=== PATIENT | female | born 1965 | race Caucasian/White ===

== ENCOUNTER 2016-10-13 18:20 | Emergency (ER) | payer BC ==
[~2016-10-13] VITALS: Ht 165.1 cm; Wt 74.5 kg
[2016-10-13 18:23] VITALS: BP 166/95
[2016-10-13] MEDS ORDERED: CANA300T PO (18:26)
[2016-10-13] MEDS ORDERED: JANUVIA 100MG100 MG PO (18:26)
[2016-10-13 20:01] LABS: BASO % 0.4 % (0.0-2.0); EOS # 0.1 (0.0-0.7); EOS % 0.7 % (0-4.0); GRAN # 7.6 (1.4-6.5); GRAN % 70.5 % (42.2-75.2); HEMATOCRIT 40.6 % (37.0-47.0); HEMOGLOBIN 13.9 g/dl (12.5-16.0); LYMPH # 2.1 (1.2-3.4); LYMPH % 19.4 % (20.0-51.0); MEAN CELL VOLUME 89 fl (80.0-100.0); MEAN CORPUSCULAR HEMOGLOBIN 31 pg (27.0-31.0); MEAN CORPUSCULAR HGB CONC 34 g/dl (33.0-37.0); MEAN PLATELET VOLUME 10.9 fl (7.4-10.4); MONO # 0.9 (0.1-0.6); MONO % 8.6 % (1.7-9.3); PLATELET COUNT 154 K/mm3 (130-400); RED BLOOD COUNT 4.54 M/mm3 (4.10-5.30); REDCELL DISTRIBUTION WIDTH-CV 12.1 % (11.5-14.5); WHITE BLOOD COUNT 10.8 K/mm3 (4.8-10.8)
[2016-10-13 20:04] VITALS: TEMP 99
[2016-10-13 20:15] LABS: C-REACTIVE PROTEIN 4.6 mg/dL (0.0-0.9); CALCIUM 9.7 mg/dL (8.4-10.2); CREATININE, serum 0.63 mg/dL (0.52-1.25); POTASSIUM 4.2 mmol/L (3.4-5.0)
[2016-10-13 20:23] LABS: ERYTHROCYTE SEDIMENTATION RATE 15 mm/hr (0-30)
[2016-10-13] MEDS ORDERED: NAPROXEN 3375 MG/TAB PO (20:51)
[2016-10-13] MEDS ORDERED: NORCO 325 MG-51 TAB PO (20:51)
[2016-10-13 21:21] VITALS: PULSE 98
== END 2016-10-13 21:22 | disposition home or self-care (01) ==
LOC: COL.ER 18:20
PROVIDERS: Emergency Medicine
DX: M70.52 Other bursitis of knee, left knee (principal)
CPT/HCPCS: J1885

== ENCOUNTER → 2019-12-02 | Outpatient (CLI) | payer BC ==
[~2019-12-02] VITALS: Ht 165.1 cm; Wt 70.5 kg
[2019-12-02] VITALS (12 sets, daily range): BP systolic 119–156; BP diastolic 58–81; PULSE 76–101
[~2019-12-02] MED LIST: CANA300T PO; JANUVIA 100MG100 MG PO; JARDIANCE10 PO; NAPROXEN 3375 MG/TAB PO; NORCO 325 MG-51 TAB PO; TRESIBA FL100 UNIT/1 SQ
[2019-12-02 10:45] LABS: INR 1.1 (0.8-3.0); PROTHROMBIN TIME 12.3 SECONDS (9.7-12.8)
--- NOTE | 2019-12-02 11:15 | NUR ---
PT AMBULATES TO CT AND IS POSITIONED ON BED. MONITORING EQUIPMENT PLACED AND IMAGES TAKEN AND SENT
== END ==
LOC: COL.RAD 10:00
PROVIDERS: Internal Medicine
DX: C18.3 Malignant neoplasm of hepatic flexure (principal)

== ENCOUNTER 2020-05-07 10:37 | Inpatient (IN) | payer BC ==
[2020-05-07] VITALS (251 sets, daily range): BP systolic 60–105; BP diastolic 32–59; PULSE 84–115; TEMP 98.2–101.9; O2SAT 91–100
[~2020-05-07] VITALS: Ht 167.6 cm; Wt 75.2 kg
[2020-05-07 12:14] LABS: LACTIC ACID 3.2 mmol/L (0.4-2.0)
[2020-05-07 12:29] LABS: ALANINE AMINOTRANSFERASE 47 U/L (4-34); ALBUMIN 2.8 gm/dL (3.5-5.0); ALKALINE PHOSPHATASE 125 U/L (50-136); ANION GAP 10 mmol/L (7-16); AST,SGOT 59 U/L (15-37); BILIRUBIN,TOTAL 2.2 mg/dL (0.0-1.0); BLOOD UREA NITROGEN 41 mg/dL (7-17); CALCIUM 7.9 mg/dL (8.4-10.2); CARBON DIOXIDE 19 mmol/L (22-30); CREATININE, serum 1.64 (0.52-1.25); GLUCOSE 251 mg/dL (74-106); MAGNESIUM 1.7 mg/dL (1.6-2.3); POTASSIUM 3.8 mmol/L (3.4-5.0); TOTAL PROTEIN 5.6 gm/dL (6.4-8.2)
[2020-05-07 12:30] LABS: HEMOGLOBIN 10.8 g/dl (12.5-16.0); MEAN CELL VOLUME 93 fl (80.0-100.0); MEAN CORPUSCULAR HEMOGLOBIN 32 pg (27.0-31.0); MEAN CORPUSCULAR HGB CONC 35 g/dl (33.0-37.0); MEAN PLATELET VOLUME 12.8 fl (7.4-10.4); PLATELET COUNT 83 K/mm3 (130-400); RED BLOOD COUNT 3.37 M/mm3 (4.10-5.30); REDCELL DISTRIBUTION WIDTH-CV 13.4 % (11.5-14.5)
[2020-05-07 12:33] LABS: CHLORIDE 89 mmol/L (98-107); SODIUM 118 mmol/L (137-145)
[2020-05-07 12:40] LABS: HEMATOCRIT 31.3 % (37.0-47.0)
[2020-05-07 12:52] LABS: TROPONIN-I < 0.012 ng/mL (0.000-0.035)
[2020-05-07 13:33] LABS: BASOPHIL 2 % (0-2); EOSINOPHIL 1 % (0-4); LYMPHOCYTE 62 % (20.0-51.0)
[2020-05-07 13:34] LABS: PLATELET ESTIMATE DECREASED (NORMAL)
[2020-05-07 13:56] LABS: HYALINE CAST >12 /lpf; MUCOUS Present /lpf; PH 5 (5-8); SQUAMOUS EPITHELIAL 0-2 /hpf; URINE APPEARANCE Hazy; URINE BACTERIA Rare /hpf; URINE BILIRUBIN Negative (NEGATIVE); URINE BLOOD 1+ (NEGATIVE); URINE COLOR Amber; URINE GLUCOSE Negative (NEGATIVE); URINE KETONE Negative (NEGATIVE); URINE LEUKOCYTE ESTERASE Negative (NEGATIVE); URINE NITRATE Negative (NEGATIVE); URINE PROTEIN(semi-quant) 1+ (NEGATIVE); URINE RBC 0-2 /hpf; URINE WBC 0-2 /hpf
[2020-05-07 14:28] LABS: COLLECTION METHOD CATHETER
--- NOTE | 2020-05-07 15:37 | NUR ---
Vancomycin Initial Dosing Pharmacy Note Ordering provider: MITZI Indication/duration: FEBRILE NEUTROPENIA LABS: WBC 0.9, SCr 1.6, CrCl ~40 Recommendation: VANCOMYCIN 15 MG/KG Loading dose: 1.25 grams Maintenance dose: 1 gram every 24 hours Trough goal: 15-20 ug/mL. TROUGH 05/10 @ 1330
[2020-05-07] MEDS ORDERED: MAGIC MOUTHWASH1 M1 (15:39)
[2020-05-07] MEDS ORDERED: PRINIVIL10 MG PO (15:40)
--- NOTE | 2020-05-07 17:52 | NUR ---
Phone report received from Ivonne HWANG from ED.
--- NOTE | 2020-05-07 18:15 | NUR ---
Pt arrived via stretcher x1 staff assist. Neutropenic precautions in place. Pt reports preference for staff assist to transfer from stretcher to bed. Changed pt brief due to slight diarrhea noted. Pt A&O X4. Drowsy at this time. Assessments completed.
[2020-05-07 19:01] LABS: SODIUM,RANDOM URINE < 5 mmol/L
--- NOTE | 2020-05-07 19:15 | NUR ---
Bedside report provided to Mildred HWANG.
[2020-05-07 22:28] LABS: CLOSTRIDIUM DIFF A/B POS; CLOSTRIDIUM DIFF A/B INTERP Toxigenic C.diff POS
[2020-05-08] VITALS (710 sets, daily range): BP systolic 67–136; BP diastolic 38–89; PULSE 73–107; TEMP 97.7–99.8; O2SAT 72–100
--- NOTE | 2020-05-08 03:24 | NUR ---
SHADIA CALLED REGARDING PT NOT HAVING ANY OUTPUT SO FAR THIS SHIFT OTHER THAN DIARRHEA. PT BLADDER SCAN >520. PT DENIES THE SENSATION TO VOID OR PAIN DURING ASSESSMENT. AWAITING ORDERS.
--- NOTE | 2020-05-08 04:00 | NUR ---
14F ALEMAN CATH PLACED, 10ML BALLOON. 500ML MEÑO COLORED URINE OUT. PT TOLERATED WELL. SECURED TO LEFT LEG WITH STAT LOCK.
[2020-05-08 05:17] LABS: MEAN CELL VOLUME 93 fl (80.0-100.0); MEAN CORPUSCULAR HGB CONC 34 g/dl (33.0-37.0); MEAN PLATELET VOLUME 11.8 fl (7.4-10.4); PLATELET COUNT 160 K/mm3 (130-400); RED BLOOD COUNT 3.05 M/mm3 (4.10-5.30); REDCELL DISTRIBUTION WIDTH-CV 13.7 % (11.5-14.5)
[2020-05-08 05:30] LABS: HEMATOCRIT 28.5 % (37.0-47.0); HEMOGLOBIN 9.6 g/dl (12.5-16.0); MEAN CORPUSCULAR HEMOGLOBIN 31 pg (27.0-31.0)
[2020-05-08 05:34] LABS: ALBUMIN 2.3 gm/dL (3.5-5.0); BILIRUBIN,TOTAL 1.6 mg/dL (0.0-1.0); CALCIUM 7.2 mg/dL (8.4-10.2); POTASSIUM 3.3 mmol/L (3.4-5.0); TOTAL PROTEIN 4.7 gm/dL (6.4-8.2)
--- NOTE | 2020-05-08 05:46 | NUR ---
SHADIA PAGED REGARDING K OF 3.3. MESSAGE LEFT WITH PETTY THE NURSE.
[2020-05-08 06:34] LABS: BAND 5 % (0-10); EOSINOPHIL 3 % (0-4); LYMPHOCYTE 57 % (20.0-51.0); METAMYELOCYTE 13 % (0-0); MYELOCYTE 1 % (0-0); NEUTROPHILS 11 % (42.0-75.2); PLATELET ESTIMATE NORMAL (NORMAL)
--- NOTE | 2020-05-08 07:05 | NUR ---
RECEIVED REPORT FROM JAIDEN VERMA. PT RESTING EASILY IN BED. CALL LIGHT WITHIN REACH. PT ON RA. FC PATENT AND DRAINING TO GRAVITY. VSS.
--- NOTE | 2020-05-08 10:15 | NUR ---
DR DE LA ROSA AT BEDSIDE FOR ASSESSMENT. NEW ORDERS RECEIVED.
--- NOTE | 2020-05-08 11:14 | NUR ---
Jr. Java Developer was able to stand outside of door and pray for patient.
--- NOTE | 2020-05-08 11:15 | NUR ---
REPORT GIVEN TO JAIDEN PAIGE.
[2020-05-08 11:19] LABS: C-REACTIVE PROTEIN 35.3 mg/dL (0.0-0.9)
--- NOTE | 2020-05-08 18:42 | NUR ---
Report given to Ritika HWANG and care transfered.
--- NOTE | 2020-05-08 21:54 | NUR ---
HR noted to jaci down to the 30's and 40's on several occasions, and then return to 70's and 80's. BP within normal limits; currently on levophed drip. Patient alert and oriented and denies symptoms associated with bradycardia. [facility] physician notified and instructed to get EKG and Cardiology consult. EKG showed Sinus bradycardia with sinus arrhythmia and [facility] physician notified. Dr. Hope notified. Instructed to monitor at this time. If heart rate maintains in the 30's may need to start epinephrine drip, although this is not necessary at this time. Will continue to monitor.
--- NOTE | 2020-05-08 22:30 | NUR ---
This nurse at bedside when notified by telemetry that it appeared that pt had converted to A-fib with RVR. This was confirmed via EKG. Patient denies any syptoms at this time and BP still stable on low dose of levophed. Vice President Of Nursing notified and instructed to continue to monitor and call back if HR remains greater than 140. Patient only on SCD's this was discussed with cardiology and wishes to keep treatment the same at this time. Will continue to monitor.
[2020-05-09] VITALS (620 sets, daily range): BP systolic 84–129; BP diastolic 6–90; PULSE 107–134; TEMP 97.6–98.6; O2SAT 84–100
--- NOTE | 2020-05-09 04:30 | NUR ---
Resting in bed; denies any concerns at this time.
[2020-05-09 06:58] LABS: HEMOGLOBIN 11.3 g/dl (12.5-16.0); MEAN CELL VOLUME 95 fl (80.0-100.0); MEAN CORPUSCULAR HEMOGLOBIN 32 pg (27.0-31.0); MEAN CORPUSCULAR HGB CONC 33 g/dl (33.0-37.0); MEAN PLATELET VOLUME 11.8 fl (7.4-10.4); PLATELET COUNT 180 K/mm3 (130-400); RED BLOOD COUNT 3.56 M/mm3 (4.10-5.30); REDCELL DISTRIBUTION WIDTH-CV 13.9 % (11.5-14.5)
--- NOTE | 2020-05-09 07:00 | NUR ---
REPORT RECEIVED FROM WOLFGANG HWANG. PT HAS LEVO RUNNING AT 0.07MCG.
[2020-05-09 07:04] LABS: ALBUMIN 2.5 gm/dL (3.5-5.0); BILIRUBIN,TOTAL 1.3 mg/dL (0.0-1.0); CALCIUM 7.8 mg/dL (8.4-10.2); CREATININE, serum 0.66 (0.52-1.25); POTASSIUM 4.1 mmol/L (3.4-5.0); TOTAL PROTEIN 5.1 gm/dL (6.4-8.2)
[2020-05-09 07:05] LABS: HEMATOCRIT 33.8 % (37.0-47.0)
[2020-05-09 11:03] LABS: BAND 8 % (0-10); LYMPHOCYTE 16 % (20.0-51.0); NEUTROPHILS 64 % (42.0-75.2)
[2020-05-09 11:04] LABS: PLATELET ESTIMATE NORMAL (NORMAL)
--- NOTE | 2020-05-09 12:00 | NUR ---
SPOKE WITH REGARING PTS BP, HR, AND BG. CALL PLACED TO REGARDING HR. ORDER RECEIVED FOR IV AMIO. ORDERS RECEIVED FROM FOR IV INSULIN. ORDER ALSO RECEIVED TO CONSULT SURGERY FOR CENTRAL LINE PLACEMENT. CALLED FOR CONSULT.
[2020-05-09 12:33] LABS: MAGNESIUM 1.9 mg/dL (1.6-2.3)
--- NOTE | 2020-05-09 14:00 | NUR ---
DR MASCORRO AT BEDSIDE FOR ASSESSMENT. ASKS FOR ANOTHER AMIO BOLUS, EKG AND ASKS ABOUT VTE PROPHOLAXIS. NEW ORDERS RECEIVED. PHYSICIAN STATES LOVENOX IS OK FOR NOW.
--- NOTE | 2020-05-09 19:30 | NUR ---
Patient alert and oriented watching TV. Assessment completed. Denies any pain or shortness of air. Assisted with a bedbath and provided with toothbrush. Will continue to monitor.
[2020-05-10] VITALS (416 sets, daily range): BP systolic 87–128; BP diastolic 51–84; PULSE 98–110; TEMP 97.4–98.9; O2SAT 91–100
--- NOTE | 2020-05-10 01:44 | NUR ---
Patient's most recent glucose 100. Drip has been on hold for last hour due low glucose levels and following insulin drip protocol. Discussed with hospitalist. Ok to stop drip at this time. Will re-evaluate if sliding scale or re-initiate of drip is needed. Will continue to monitor glucose levels.
[2020-05-10 06:00] LABS: HEMOGLOBIN 10.3 g/dl (12.5-16.0); MEAN CELL VOLUME 94 fl (80.0-100.0); MEAN CORPUSCULAR HEMOGLOBIN 32 pg (27.0-31.0); MEAN CORPUSCULAR HGB CONC 34 g/dl (33.0-37.0); MEAN PLATELET VOLUME 12.1 fl (7.4-10.4); PLATELET COUNT 203 K/mm3 (130-400); RED BLOOD COUNT 3.22 M/mm3 (4.10-5.30); REDCELL DISTRIBUTION WIDTH-CV 14.1 % (11.5-14.5)
--- NOTE | 2020-05-10 06:02 | NUR ---
Blood glucose 126 this am with insulin drip off. Hospitalist notified and will initiate low sliding scale insulin q4hr.
[2020-05-10 06:04] LABS: HEMATOCRIT 30.2 % (37.0-47.0)
[2020-05-10 06:08] LABS: ALBUMIN 2.2 gm/dL (3.5-5.0); BILIRUBIN,TOTAL 1.2 mg/dL (0.0-1.0); CALCIUM 7.9 mg/dL (8.4-10.2); CREATININE, serum 0.69 (0.52-1.25); MAGNESIUM 1.8 mg/dL (1.6-2.3); POTASSIUM 3.6 mmol/L (3.4-5.0); TOTAL PROTEIN 4.6 gm/dL (6.4-8.2)
--- NOTE | 2020-05-10 06:35 | NUR ---
Notified Dr. Hopkins of critical WBC count. Will obtain blood cultures X2 and a UA.
[2020-05-10 07:05] LABS: BAND 35 % (0-10); LYMPHOCYTE 11 % (20.0-51.0); METAMYELOCYTE 3 % (0-0); MYELOCYTE 10 % (0-0); NEUTROPHILS 31 % (42.0-75.2); NUCLEATED RED BLOOD CELL 3 (0-6)
[2020-05-10 07:08] LABS: PLATELET ESTIMATE NORMAL (NORMAL)
[2020-05-10 07:09] LABS: SCHISTOCYTES 1+; SPHEROCYTE 1+; TEAR DROP CELLS 1+
[2020-05-10 07:10] LABS: OVALOCYTES 1+
--- NOTE | 2020-05-10 07:30 | NUR ---
REPORT RECEIVED FROM JAIDEN GOSS
[2020-05-10 08:09] LABS: OSMOLALITY-URINE random 162 Osm/kg (50-1200)
--- NOTE | 2020-05-10 13:00 | NUR ---
Patient arrived to floor from ICU via bed. Patient is sleepy but rouses with some effort. While awake patient responds to some questions and grimices, answers yes when asked if he is having pain, administered PRN pain medication per order. IVF and antibiotic running per order. Epidural in place. Midline incision has some bloody drainage that is dried, otherwise well approximated and no indications of infection. Tube feeding at 35 ml per hour. Galindo in place. Call light within reach, bed alarm on.
--- NOTE | 2020-05-10 17:00 | NUR ---
Patient taken up to room 325 after receiving transfer orders. Patient requests zarate to be discontinued. She is able to ambulate with no issue and has been hemodynamically stable. Zarate discontinued per her request.
--- NOTE | 2020-05-10 17:30 | NUR ---
Patient arrived to floor from ICU via wheelchair. Patient is alert and oriented, answers questions appropriately. Patient resting in bedside recliner at this time and denies pain or needs. Call light within reach.
--- NOTE | 2020-05-10 19:13 | NUR ---
Patient resting in bed at this time. Patient remains sleepy, rouses with some effort. Epidural continues per anesthesia recommendations. Tube feeding increased to 54 ml/hr per order.
[2020-05-10 22:27] LABS: COLLECTION METHOD CATHETER
[2020-05-10 22:35] LABS: PH 7 (5-8); SQUAMOUS EPITHELIAL None Seen /hpf; URINE APPEARANCE Clear; URINE BACTERIA None Seen /hpf; URINE BILIRUBIN Negative (NEGATIVE); URINE BLOOD Negative (NEGATIVE); URINE COLOR Yellow; URINE GLUCOSE Negative (NEGATIVE); URINE KETONE Negative (NEGATIVE); URINE LEUKOCYTE ESTERASE Negative (NEGATIVE); URINE NITRATE Negative (NEGATIVE); URINE PROTEIN(semi-quant) Negative (NEGATIVE); URINE RBC 0-2 /hpf; URINE UROBILINOGEN Negative (NEGATIVE)
[2020-05-11] VITALS: BP 116/62; PULSE 73; TEMP 97.5
--- NOTE | 2020-05-11 00:52 | NUR ---
Up to bathroom at this time-stand by assist. Large liquid brown BM. Assisted back to bed. Call light in reach. Will monitor.
[2020-05-11 05:04] VITALS: BP 117/80; PULSE 70; TEMP 97.7
[2020-05-11 07:37] VITALS: BP 119/65; PULSE 70; TEMP 97.6
--- NOTE | 2020-05-11 08:00 | NUR ---
Patient resting in bed at this time. Patient is alert and oriented, answers questions appropriately. Patient reports that she has had a loose formed stool this morning, denies pain or discomfort. Call light within reach.
[2020-05-11 09:56] LABS: MEAN CELL VOLUME 96 fl (80.0-100.0); MEAN CORPUSCULAR HGB CONC 34 g/dl (33.0-37.0); PLATELET COUNT 165 K/mm3 (130-400); RED BLOOD COUNT 2.95 M/mm3 (4.10-5.30); REDCELL DISTRIBUTION WIDTH-CV 14.7 % (11.5-14.5)
[2020-05-11 10:03] LABS: CALCIUM 7.7 mg/dL (8.4-10.2); CREATININE, serum 0.76 (0.52-1.25); MAGNESIUM 1.9 mg/dL (1.6-2.3)
[2020-05-11 10:09] LABS: HEMATOCRIT 28.4 % (37.0-47.0); HEMOGLOBIN 9.6 g/dl (12.5-16.0); MEAN CORPUSCULAR HEMOGLOBIN 33 pg (27.0-31.0)
[2020-05-11 11:06] LABS: BAND 16 % (0-10); LYMPHOCYTE 7 % (20.0-51.0); METAMYELOCYTE 4 % (0-0); MYELOCYTE 3 % (0-0); NEUTROPHILS 59 % (42.0-75.2); NUCLEATED RED BLOOD CELL 1 (0-6); PLATELET ESTIMATE NORMAL (NORMAL)
[2020-05-11 11:07] LABS: OVALOCYTES 1+; SPHEROCYTE 1+
[2020-05-11 11:38] VITALS: BP 124/72; PULSE 74; TEMP 97.2
--- NOTE | 2020-05-11 14:05 | NUR ---
ILIANA met with the patient to discuss discharge plan. The patient lives in [place] with her , Carlos (ph#[phone]). She reports independence with ADLs and does not have any DME. The patient's primary care provider is FRANCISCO Huggins and she receives her medications from [facility]. She reports no difficulties obtaining her meds. The patient does not have a DPOA-HC in EMR, but she states that she does have one completed and at home. She states that her is her DPOA-HC. The patient plans to return home with her upon discharge. ILIANA contacted and reviewed the above information with the patient's . He had no concerns for SW. No additional needs at this time.
[2020-05-11 16:00] VITALS: BP 124/83; PULSE 71; TEMP 97.5
--- NOTE | 2020-05-11 18:27 | NUR ---
Patient resting in bed eating dinner. Patient is alert and oriented, denies pain. Patient reports that she is feeling very well and is disappointed she didn't get to go home today. Patient denies further needs,call light within reach.
--- NOTE | 2020-05-11 20:00 | NUR ---
Report received, assumed care for night time babysitter. Assessment complete. A&Ox3. VS stable. Denies pain/nausea/shortness of breath/diarrhea. Central line to left IJ flushes without difficulty-good blood return. NS@63ml/hr. Plan of care discussed for this shift to include HS meds/calling for questions/concerns. Verbalizes understanding. Call light in reach. Will monitor.
[2020-05-11 20:30] VITALS: BP 110/76; PULSE 76; TEMP 97.5
--- NOTE | 2020-05-11 21:00 | NUR ---
HS bedside glucose 73-Levemir held. Provided a snack to eat. Will recheck glucose.
[2020-05-12 00:59] VITALS: BP 99/51; PULSE 85; TEMP 98.1
[2020-05-12 04:17] VITALS: BP 110/52; PULSE 82; TEMP 97.5
--- NOTE | 2020-05-12 05:43 | NUR ---
Rested well this shift. States she really wants to go home today. Had one episode of liquid stool this shift. VS remained stable. Blood sugars WNL-held levemir due to low HS reading. Denies questions/concerns. Call light in reach. Will monitor.
[2020-05-12 06:28] LABS: HEMOGLOBIN 10.8 g/dl (12.5-16.0); MEAN CELL VOLUME 99 fl (80.0-100.0); MEAN CORPUSCULAR HEMOGLOBIN 33 pg (27.0-31.0); MEAN CORPUSCULAR HGB CONC 33 g/dl (33.0-37.0); MEAN PLATELET VOLUME 11.9 fl (7.4-10.4); PLATELET COUNT 156 K/mm3 (130-400); RED BLOOD COUNT 3.32 M/mm3 (4.10-5.30); REDCELL DISTRIBUTION WIDTH-CV 14.8 % (11.5-14.5)
[2020-05-12 06:36] LABS: CREATININE, serum 0.74 (0.52-1.25); POTASSIUM 4.1 mmol/L (3.4-5.0)
[2020-05-12 06:43] LABS: HEMATOCRIT 32.7 % (37.0-47.0)
[2020-05-12 07:27] VITALS: BP 129/68; PULSE 80; TEMP 97.5
[2020-05-12 08:49] LABS: ANISOCYTOSIS 1+; BAND 9 % (0-10); LYMPHOCYTE 11 % (20.0-51.0); METAMYELOCYTE 7 % (0-0); MYELOCYTE 2 % (0-0); NEUTROPHILS 60 % (42.0-75.2); PLATELET ESTIMATE NORMAL (NORMAL)
[2020-05-12 08:51] LABS: HYPOCHROMIA 1+
--- NOTE | 2020-05-12 09:45 | NUR ---
Patient alert and oriented, answers questions appropriately. See assessment. No loose or frequent stools this shift. No c/o at this time.
[2020-05-12] MEDS ORDERED: ELIQUIS 5MG PO (11:25)
[2020-05-12] MEDS ORDERED: VANCOCIN H125 MG/CAP PO (11:26)
[2020-05-12 11:27] VITALS: BP 117/65; PULSE 81; TEMP 97.3
[2020-05-12] MEDS ORDERED: PACERONE400 MG PO (11:27)
--- NOTE | 2020-05-12 11:59 | NUR ---
Dr Syed here to see patient.
--- NOTE | 2020-05-12 12:46 | NUR ---
Right IJ removed per drs order with no complications. Pressure held for 5 minutes, pressure dressing applied.
--- NOTE | 2020-05-12 13:48 | NUR ---
Discharge instructions reviewed with patient, verbalized understanding. Discharged via wheelchair to auto/home with family at 1330.
== END 2020-05-12 13:30 | disposition home or self-care (01) | DRG 871 ==
LOC: COL.ER 10:37 → ICU 13:26 → SURG 05-10 17:30
PROVIDERS: Emergency Medicine; Internal Medicine; Internal Medicine Critical Care Medicine; Internal Medicine Pulmonary Disease; Student in an Organized Health Care Education/Training Program; ADMIT Hospitalist
PROC: 05HM33Z Insertion of Infusion Device into Right Internal Jugular Vein, Percutaneous Approach (ICD-10-PCS; principal; 2020-05-09)
DX: A41.51 Sepsis due to Escherichia coli [E. coli] (principal); R65.21 Severe sepsis with septic shock; A04.72 Enterocolitis due to Clostridium difficile, not specified as recurrent; E87.1 Hypo-osmolality and hyponatremia; N17.9 Acute kidney failure, unspecified; E87.2 Acidosis; N39.0 Urinary tract infection, site not specified; R50.81 Fever presenting with conditions classified elsewhere; T45.1X5A Adverse effect of antineoplastic and immunosuppressive drugs, initial encounter; D70.2 Other drug-induced agranulocytosis; Z20.828 Contact with and (suspected) exposure to other viral communicable diseases; I48.91 Unspecified atrial fibrillation; D69.6 Thrombocytopenia, unspecified; D64.9 Anemia, unspecified; E11.9 Type 2 diabetes mellitus without complications; I10 Essential (primary) hypertension; Z85.038 Personal history of other malignant neoplasm of large intestine; Z98.51 Tubal ligation status; Z87.891 Personal history of nicotine dependence
CPT/HCPCS: 99223-AI; 99232-AI; 99233-AI; 99239; C9113; J0282; J1447; J1650; J1720; J1815; J2543; J3370; J7030; J7050; J7060; J7120

== ENCOUNTER 2023-03-15 13:01 | Day surgery (SDC) | payer BC ==
[~2023-03-15] VITALS: Ht 165.1 cm; Wt 73.8 kg
[~2023-03-15 13:01] MED LIST changes: +ALDACTONE 25MG25 M1 PO; +CARAFATE 1GM1 G PO; +DAZIDOX10 MG PO; +ELIQUIS 5MG PO; +FARXIGA10 PO; +FLAGYL500 MG PO; +LASIX 20MG TABL20 MG PO; +LEVAQUIN 750MG750 M1 PO; +LOVENOX 4040 MG/0.4 SQ; +MAGIC MOUTHWASH1 M1; +MULTIVITAMIN FO1 CAP PO; +NATURAL IRON65 MG PO; +NEURONTIN300 MG/CAP PO; +PACERONE400 MG PO; +PRINIVIL10 MG PO; +PROTONIX 40MG T40 MG PO; +RESTORIL 1515 MG/CAP PO; +VANCOCIN H125 MG/CAP PO
[2023-03-15] MEDS ORDERED: OCUVITE1 TA1 PO (13:39)
[2023-03-15] MEDS ORDERED: RESTORIL 1515 MG/CAP PO (13:42)
[2023-03-15] MEDS ORDERED: DORYX100 PO (13:43)
[2023-03-15] MEDS ORDERED: MAG-OX 400400 MG/TAB PO (13:44)
[2023-03-15] MEDS ORDERED: TRESIBA FL100 UNIT/1 SQ (13:48)
[2023-03-15] MEDS ORDERED: VITAMIN B6250 MG PO (13:49)
[2023-03-15] MEDS ORDERED: COLACE 100100 MG/CAP PO (13:50)
[2023-03-15 15:16] VITALS: BP 104/73; PULSE 99; TEMP 98
--- NOTE | 2023-03-15 15:19 | NUR ---
1330 PT AMBULATORY TO BAY 4 WITH A STEADY GAIT, BREATHING EVEN AND UNLABORED. PT IS ALERT AND ORIENTED, ACCOMPANIED BY HER . CONSENTS REVIEWED AND SIGNED BY PT. PORT A CATH ACCESSED PER PT REQUEST AND VERBAL ORDER FROM DR. BAL. LR INFUSING VIA GRAVITY AT [facility]. CALL LIGHT IN REACH. WARM BLANKET PROVIDED.
[2023-03-15 15:30] VITALS: BP 122/81; PULSE 109; TEMP 98.2
[2023-03-15 15:45] VITALS: BP 101/65; PULSE 102
--- NOTE | 2023-03-15 16:11 | NUR ---
1530-PT ARRIVED VIA CART TO [facility] BAY 4 AND AMBULATED WITH ASSISTANCE TO RECLINER. WARM BLANKET PROVIDED. VITAL SIGNS TAKEN, VSS. PT ALERT AND ORIENTED, DENIES PAIN OR NAUSEA. REPORT OBTAINED FROM JAIDEN SANDERSON. PT OFFERED PO INTAKE AT THIS TIME. 1545-PT TOLERATING PO INTAKE, DENIES COMPLAINTS. VSS. 1555-DR. BAL AT BEDSIDE TO DISCUSS PROCEDURE TO PT AND SPOUSE. QUESTIONS INVITED. 1600-DISCHARGE INSTRUCTIONS REVIEWED WITH PT AND SPOUSE, PT VERBALIZED UNDERSTANDING. PORTACATHETER FLUSHED WITH 10 ML NS AND 5 ML HEPARINIZED SALINE, DEACCESSED AND BANDAID APPLIED. PT CHANGED INDEPENDENTY INTO PERSONAL CLOTHING 1607-PT DISCHARGED HOME TO [facility] VIA WHEELCHAIR, ACCOMPANIED BY SPOUSE AND FAMILY MEMBERS. ALL BELONGINGS AND D/C INSTRUCTIONS SENT WITH PT.
== END 2023-03-15 16:07 | disposition home or self-care (01) ==
LOC: SDCO 13:01
DX: K83.1 Obstruction of bile duct (principal); R17 Unspecified jaundice; K31.89 Other diseases of stomach and duodenum; K29.70 Gastritis, unspecified, without bleeding; K86.9 Disease of pancreas, unspecified; I10 Essential (primary) hypertension; C78.7 Secondary malignant neoplasm of liver and intrahepatic bile duct; C18.9 Malignant neoplasm of colon, unspecified; Z79.899 Other long term (current) drug therapy
CPT/HCPCS: C1769; C2625; J1644; J2405; J2704; J3010; J7120; Q9967

== ENCOUNTER 2023-03-31 16:29 | Emergency (ER) | payer BC ==
[~2023-03-31] VITALS: Ht 165.1 cm; Wt 69.1 kg
[~2023-03-31 16:29] MED LIST changes: +COLACE 100100 MG/CAP PO; +DORYX100 PO; +MAG-OX 400400 MG/TAB PO; +OCUVITE1 TA1 PO; +VITAMIN B6250 MG PO
[2023-03-31 17:14] LABS: INR 1.9 (0.8-3.0); PROTHROMBIN TIME 20.2 SECONDS (9.7-12.8)
[2023-03-31 17:24] LABS: MEAN CELL VOLUME 97 fl (80.0-100.0); MEAN CORPUSCULAR HGB CONC 31 g/dl (33.0-37.0); MEAN PLATELET VOLUME 11.8 fl (7.4-10.4); PLATELET COUNT 138 K/mm3 (130-400); RED BLOOD COUNT 2.08 M/mm3 (4.10-5.30); REDCELL DISTRIBUTION WIDTH-CV 22.5 % (11.5-14.5)
[2023-03-31 17:25] LABS: ALBUMIN 1.8 gm/dL (3.5-5.0); BILIRUBIN,TOTAL 3.2 mg/dL (0.2-1.2); CALCIUM 7.6 mg/dL (8.4-10.2); CREATININE, serum 1.19 mg/dL (0.57-1.11); POTASSIUM 5.4 mmol/L (3.5-4.5); TOTAL PROTEIN 4.2 gm/dL (6.2-8.1)
[2023-03-31 18:04] LABS: HEMATOCRIT 20.1 % (37.0-47.0); MEAN CORPUSCULAR HEMOGLOBIN 30 pg (27-31)
[2023-03-31 18:05] LABS: HEMOGLOBIN 6.3 g/dl (12.5-16.0)
[2023-03-31 18:07] LABS: ANISOCYTOSIS 3+; BAND 1 % (0-10); LYMPHOCYTE 4 % (20.0-51.0); METAMYELOCYTE 1 % (0-0); NEUTROPHILS 92 % (42.0-75.2); NUCLEATED RED BLOOD CELL 2 (0-6); PLATELET ESTIMATE NORMAL (NORMAL)
[2023-03-31 18:08] LABS: POLYCHROMASIA 1+
[2023-03-31 20:25] VITALS: BP 81/63; PULSE 107; TEMP 98.4
[2023-03-31 20:30] VITALS: BP 91/65; PULSE 112
[2023-03-31 20:35] VITALS: BP 98/65; PULSE 105; TEMP 98.7
[2023-03-31 20:40] VITALS: BP 96/63; PULSE 106; TEMP 98.3
[2023-03-31 22:30] VITALS: BP 114/63; PULSE 96
== END 2023-03-31 22:30 | disposition short-term general hospital (02) ==
LOC: COL.ER 16:29
PROVIDERS: Physician Assistant
DX: K92.2 Gastrointestinal hemorrhage, unspecified (principal); C18.9 Malignant neoplasm of colon, unspecified; C78.7 Secondary malignant neoplasm of liver and intrahepatic bile duct; E11.65 Type 2 diabetes mellitus with hyperglycemia; E11.40 Type 2 diabetes mellitus with diabetic neuropathy, unspecified; I44.7 Left bundle-branch block, unspecified; E80.6 Other disorders of bilirubin metabolism; D64.9 Anemia, unspecified; Z79.899 Other long term (current) drug therapy; Z87.891 Personal history of nicotine dependence; Z28.311 Partially vaccinated for COVID-19
CPT/HCPCS: C9113; J1815; J2060; J7030; P9016